=== PATIENT | female | born 1965 | race Caucasian/White ===

== ENCOUNTER → 2019-06-22 | Outpatient (CLI) | payer OTHER ==
[~2019-06-22] MED LIST: CELEXA 20MG20 MG/TAB PO; COUMADIN 3MG3 MG/TAB PO; NORCO 325 MG-51 TAB PO; TENORMIN 2525 MG/TAB PO
== END ==
LOC: COL.RAD 13:32
DX: M79.89 Other specified soft tissue disorders (principal); Z96.651 Presence of right artificial knee joint